=== PATIENT | male | born 2000 | race Caucasian/White ===

== ENCOUNTER 2019-12-04 11:38 | Emergency (ER) | payer SELFPAY ==
--- NOTE | 2019-12-04 12:31 | ER Document Report ---
ED Medical Screen (RME) - General Chief Complaint: Groin Pain Stated Complaint: GROIN PAIN Time Seen by Provider: 12/04/19 12:20 Mode of Arrival: Ambulatory Information source: Patient Notes: 19-year-old male presents to ED for complaint of swollen vessel above the left testicle. He states is been very painful for the last 2 days. He states for the last 2 days his left testicle is also swollen. He states that this been swollen for about a year but for the last 2 days the pain and swelling is much worse. He is alert oriented respirations regular nonlabored speaking in full sentences. He states he does smoke 1/4 pack a day drinks weekly does not use any drugs. He has had eye surgery on the left eye. He states he is allergic to tetanus. I have greeted and performed a rapid initial assessment of this patient. A comprehensive ED assessment and evaluation of the patient, analysis of test results and completion of medical decision making process will be conducted by an additional ED providers. Physical Exam - Vital signs Vitals: Temp Pulse Resp BP Pulse Ox 98.8 F 101 H 20 132/85 H 98 12/04/19 11:44 12/04/19 11:44 12/04/19 11:44 12/04/19 11:44 12/04/19 11:44 Course - Vital Signs Vital signs: Temp Pulse Resp BP Pulse Ox 98.8 F 101 H 20 132/85 H 98 12/04/19 11:44 12/04/19 11:44 12/04/19 11:44 12/04/19 11:44 12/04/19 11:44
--- NOTE | 2019-12-04 13:02 | RADIOLOGY REPORT (SQ) ---
EXAM DESCRIPTION: U/S SCROTUM W/DOPPLER IMAGES COMPLETED DATE/TIME: 12/04/2019 12:47 pm REASON FOR STUDY: left swollen painful testicle COMPARISON: None. TECHNIQUE: Static and realtime arrington scale imaging of the scrotum and testes. Selected color Doppler and spectral images recorded to document blood flow. LIMITATIONS: None. FINDINGS: RIGHT: TESTICLE: Normal size. Normal echotexture. Normal blood flow. No mass. EPIDIDYMIS: Normal. HYDROCELE OR VARICOCELE: No. HERNIA OR EXTRA-TESTICULAR MASS: No. OTHER: No other significant finding. LEFT: TESTICLE: Normal size. Normal echotexture. Normal blood flow. No mass. EPIDIDYMIS: Normal. HYDROCELE OR VARICOCELE: There is a left-sided varicocele. Largest vessel measures 4.9 mm in diamete r. This increases with Valsalva. HERNIA OR EXTRA-TESTICULAR MASS: No. OTHER: No other significant finding. IMPRESSION: Left-sided varicocele. No evidence of torsion. TECHNICAL DOCUMENTATION: JOB ID: [id number] [employer]- All Rights Reserved Reading location - IP/workstation name: [email or web address]
[2019-12-04 13:19] LABS: AMORPHOUS SEDIMENT,URINE TRACE /HPF; APPEARANCE,URINE CLOUDY; BILIRUBIN,URINE NEGATIVE (NEGATIVE); COLOR,URINE YELLOW; GLUCOSE, URINE NEGATIVE (NEGATIVE); KETONES,URINE NEGATIVE (NEGATIVE); LEUKOCYTE ESTERASE,URINE NEGATIVE (NEGATIVE); NITRITE,URINE NEGATIVE (NEGATIVE); PROTEIN,URINE NEGATIVE (NEGATIVE); URINE SPECIFIC GRAVITY 1.021; UROBILINOGEN,URINE NEGATIVE mg/dL (<2.0)
[2019-12-04] MEDS ORDERED: IBUPROFEN 800 MG TABLET PO ONE (14:31)
--- NOTE | 2019-12-04 14:36 | ER Document Report ---
ED GI/ - General Chief Complaint: Testicular Pain Stated Complaint: GROIN PAIN Time Seen by Provider: 12/04/19 12:20 Primary Care Provider: [facility] [Provider Group] - Follow up as needed Mode of Arrival: Ambulatory Information source: Patient Notes: Patient presents complaining of aching tenderness to the left testicle with a prominent vessel for the past 3 days. Patient denies any penile drainage or discharge. Patient denies any concern about STI. Patient denies any fever or dysuria. Patient denies any trauma to the scrotum - HPI Patient complains to provider of: Testicular pain. No: Abdominal pain Onset: Other - 3 days Timing/Duration: Persistent Quality of pain: Achy, Throbbing Pain Level: 4 Location: Left testicle Associated symptoms: denies: Nausea, Urinary hesitancy, Urinary frequency, Urinary retention, Urinary urgency, Vomiting Exacerbated by: Denies Relieved by: Denies Similar symptoms previously: No Recently seen / treated by doctor: No - Related Data Allergies/Adverse Reactions: Tetanus Vaccines and Toxoid Allergy (Verified 12/04/19 13:16) Past Medical History - General Information source: Patient - Social History Smoking Status: Current Every Day Smoker Frequency of alcohol use: None Drug Abuse: None Occupation: Retail Family History: Reviewed & Not Pertinent Patient has homicidal ideation: No - Medical History Medical History: Negative Past Surgical History: Reports: Other - Eye surgery Review of Systems - Review of Systems Constitutional: No symptoms reported. denies: Fever EENT: No symptoms reported Cardiovascular: No symptoms reported Respiratory: No symptoms reported Gastrointestinal: No symptoms reported. denies: Nausea, Vomiting Genitourinary: No symptoms reported. denies: Dysuria, Flank pain Male Genitourinary: Testicular pain. denies: Penile discharge Musculoskeletal: No symptoms reported. denies: Back pain Skin: No symptoms reported Hematologic/Lymphatic: No symptoms reported Neurological/Psychological: No symptoms reported Physical Exam - Vital signs Vitals: Temp Pulse Resp BP Pulse Ox 98.8 F 101 H 20 132/85 H 98 12/04/19 11:44 12/04/19 11:44 12/04/19 11:44 12/04/19 11:44 12/04/19 11:44 - General General appearance: Appears well, Alert In distress: None - HEENT Head: Normocephalic, Atraumatic Eyes: Normal Conjunctiva: Normal Nasal: Normal Mouth/Lips: Normal Mucous membranes: Normal - Respiratory Respiratory status: No respiratory distress Chest status: Nontender Breath sounds: Normal. No: Rales, Rhonchi, Stridor, Wheezing Chest palpation: Normal - Cardiovascular Rhythm: Regular Heart sounds: S1 appreciated, S2 appreciated - Abdominal Inspection: Normal Distension: No distension Bowel sounds: Normal Tenderness: Nontender - Genitourinary Inspection: Normal. No: Blood at meatus Tenderness: Testicle tender - left testicular tenderness with prominent vessel Cremasteric reflex: Normal Scrotum: Normal Notes: RN Saba as standby - Back Back: Normal, Nontender. No: CVA tenderness - Extremities General upper extremity: Normal inspection, Normal strength General lower extremity: Normal inspection, Normal strength - Neurological Neuro grossly intact: Yes Cognition: Normal Henry Coma Scale Eye Opening: Spontaneous [place] Coma Scale Verbal: Oriented [place] Coma Scale Motor: Obeys Commands [place] Coma Scale Total: 15 - Psychological Associated symptoms: Normal affect, Normal mood - Skin Skin Temperature: Warm Skin Moisture: Dry Skin Color: Normal Course - Re-evaluation Re-evalutation: 12/04/19 14:33 Urinalysis without any signs of infection, patient denies any penile discharge or drainage. No concern for STI. Ultrasound reviewed, patient without any evidence of testicular torsion although does have a left varicocele. Discussed importance of scrotal support and follow-up with urology for further evaluation, patient verbalized understanding is agreeable with discharge plan of care. - Vital Signs Vital signs: Temp Pulse Resp BP Pulse Ox 98.0 F 70 17 133/82 H 100 12/04/19 14:42 12/04/19 14:42 12/04/19 14:42 12/04/19 14:42 12/04/19 14:42 - Laboratory Laboratory results interpreted by me: 12/04/19 14:33 Labs- All tests 24 hr 12/04/19 13:05 Urine Color YELLOW Urine Appearance CLOUDY Urine pH 7.0 Ur Specific [place] 1.021 Urine Protein NEGATIVE Urine Glucose (UA) NEGATIVE Urine Ketones NEGATIVE Urine Blood NEGATIVE Urine Nitrite NEGATIVE Urine Bilirubin NEGATIVE Urine Urobilinogen NEGATIVE Ur Leukocyte Esterase NEGATIVE Urine RBC (Auto) 0 Amorphous Sediment Auto TRACE Urine Mucus (Auto) FEW Urine Ascorbic Acid NEGATIVE - Diagnostic Test Radiology reviewed: Reports reviewed Discharge - Discharge Clinical Impression: Varicocele, Scrotal pain Condition: Stable Disposition: HOME, SELF-CARE Instructions: Testicular Pain ([facility]) Additional Instructions: Return immediately for any new or worsening symptoms Followup with your primary care provider, call tomorrow to make a followup appointment Your ultrasound showed that you have a varicocele to the left testicle, wear supportive underwear Follow-up with urology for further evaluation, call tomorrow to make a follow-up appointment Prescriptions: Naproxen [Naprosyn 250 Nmg Tablet] 1 tab PO BID #14 tablet Forms: Return to Work Referrals: [facility] [Provider Group] - Follow up as needed
[2019-12-04 14:44] VITALS: BP 133/82
== END 2019-12-04 14:46 | disposition home or self-care (01) ==
LOC: ER 11:38
DX: I86.1 Scrotal varices (principal); N50.82 Scrotal pain; N50.812 Left testicular pain; F17.200 Nicotine dependence, unspecified, uncomplicated; Z88.7 Allergy status to serum and vaccine
CPT/HCPCS: 76870; 81001; 93976; 99284